=== PATIENT | female | born 1995 | race Caucasian/White ===

== ENCOUNTER 2020-10-26 07:12 | Inpatient (IN) | payer OTHER ==
[2020-10-26] MEDS ORDERED: CITRIC ACID/SODIUM CITRATE 30 ML UNIT-DOSE CUP PO ONE (08:37)
[2020-10-26] MEDS: ELECTROLYTE-148 SOLN 1,000 ML IV SCH (09:00)
[2020-10-26 09:07] LABS: INR 0.95 (0.83-1.09); PROTHROMBIN TIME (PATIENT) 11.5 SEC (9.7-13.0)
[2020-10-26 09:10] LABS: ACTIVATED PTT 24.8 SECONDS (25.2-36.5)
[2020-10-26] MEDS ORDERED: PHENYLEPHRINE HCL 10 MG/1 ML SINGLE DOSE VIAL ONE (09:13)
[2020-10-26] MEDS ORDERED: morphine SULFATE/PF 0.5 MG/ML (2cc Syringe - QUVA) ONE (09:13)
[2020-10-26] MEDS ORDERED: ePHEDrine SULFATE 50 MG/1 ML AMPULE ONE (09:16)
[2020-10-26 09:21] VITALS: BMI 49.6
[2020-10-26 09:21] LABS: BLOOD UREA NITROGEN 11.3 mg/dL (7-18); CALCIUM 9.1 mg/dL (8.5-10.1)
[2020-10-26 09:25] LABS: CREATININE 0.5 mg/dL (0.55-1.3)
[2020-10-26 10:37] LABS: HIV INTERPRETATION NEGATIVE (NEGATIVE)
[2020-10-26] MEDS ORDERED: LIGASURE IMPACT TP ONE (11:46)
[2020-10-26 12:37] LABS: CORD HCO3 22.3 mmHg (20-29); CORD PCO2 51.6 mmHg (30-78); CORD pH 7.254 (7.14-7.44)
[2020-10-26 12:41] LABS: CORD HCO3 24.5 mmHg (20-29); CORD pH 7.325 (7.14-7.44)
[2020-10-26] MEDS ORDERED: KETOROLAC TROMETHAMINE 30 MG/1 ML VIAL ONE (12:57)
[2020-10-26] MEDS ORDERED: DEXAMETHASONE SOD PHOSPHATE 4 MG/1 ML VIAL ONE ×2 (12:57)
[2020-10-26] MEDS ORDERED: OXYTOCIN 10 UNIT/ML 10ML MDV ONE (12:57)
[2020-10-26] MEDS ORDERED: ONDANSETRON 4 MG/2 ML VIAL ONE (12:57)
[2020-10-26] MEDS ORDERED: GLYCOPYRROLATE 0.2 MG/1 ML VIAL ONE (13:11)
[2020-10-26] MEDS ORDERED: ceFAZolin SODIUM 1 GM VIAL ONE (13:12)
[2020-10-26] MEDS ORDERED: ONDANSETRON 4 MG/2 ML VIAL IVPUSH PRN (13:38)
[2020-10-26] MEDS ORDERED: morphine SULFATE/PF 0.5 MG/ML (2cc Syringe - QUVA) EP ONE (13:38)
[2020-10-26] MEDS ORDERED: diphenhydrAMINE HCL 25 MG CAPSULE (FP) PO PRN (14:17)
[2020-10-26] MEDS ORDERED: METHYLERGONOVINE MALEATE 0.2 MG/1 ML AMP IM PRN (14:17)
[2020-10-26] MEDS ORDERED: WITCH HAZEL 50% (TUCKS) 40 PAD/JAR PAD TP PRN (14:17)
[2020-10-26] MEDS ORDERED: BENZOCAINE 28 GM HEMORRHOIDAL OINTMENT RC PRN (14:17)
[2020-10-26] MEDS ORDERED: oxyCODONE HCL 5 MG TABLET PO PRN ×2 (14:17)
[2020-10-26] MEDS ORDERED: BENZOCAINE 20% 57 GM BOTTLE TP PRN (14:17)
[2020-10-26] MEDS ORDERED: IBUPROFEN 800 MG/8 ML IJ IVPB PRN (14:17)
[2020-10-26] MEDS ORDERED: OXYTOCIN 20 UNITS in 0.9% NS 20 UNIT/1,000 ML INFUS.BAG IV SCH (14:30)
[2020-10-26] MEDS: CEFAZOLIN 1 GM/D5W 1 GM/50 ML BAG IVPB SCH (17:35)
[2020-10-27] MEDS: CEFAZOLIN 1 GM/D5W 1 GM/50 ML BAG IVPB SCH (02:48)
[2020-10-27] MEDS: IBUPROFEN 600 MG TABLET (FP) PO PRN ×2 (08:20→18:45)
[2020-10-27] MEDS: SIMETHICONE 80 MG TAB.CHEW (FP) PO PRN (08:21)
[2020-10-27 11:33] LABS: BASO % 0.3 % (0-2.0); HEMATOCRIT 31.7 % (32.4-45.2); HEMOGLOBIN 10.3 GM/dL (10.7-15.3); LYMPH % 18.2 % (8-40); MCHC 32.6 g/dl (32.0-36.0); MEAN CELL VOLUME 73.5 fl (80-96); MEAN PLT VOLUME 7.9 fl (7.5-11.1); MONO % 8.8 % (3.8-10.2); NEUT % 72.7 % (42.8-82.8); PLATELET COUNT 383 10^3/uL (134-434); RBC 4.31 M/mm3 (3.60-5.2); RDW 17.8 % (11.6-15.6); WHITE BLOOD COUNT 16.7 K/mm3 (4.0-10.0)
[2020-10-27] MEDS: ACETAMINOPHEN 325 MG TABLET (FP) PO PRN (13:14)
[2020-10-27] MEDS ORDERED: BISACODYL 10 MG SUPP.RECT PR PRN (14:17)
[2020-10-28] MEDS: IBUPROFEN 600 MG TABLET (FP) PO PRN ×4 (02:16→21:49)
[2020-10-28] MEDS: SIMETHICONE 80 MG TAB.CHEW (FP) PO PRN ×4 (02:19→21:50)
[2020-10-28] MEDS: ELECTROLYTE-148 SOLN 1,000 ML IV SCH ×2 (20:40→20:41)
[2020-10-28] MEDS: DEXTROSE 5%-LACTATED RINGERS 1,000 ML IV SCH ×2 (20:40→20:41)
[2020-10-28] MEDS: ACETAMINOPHEN 325 MG TABLET (FP) PO PRN (21:50)
[2020-10-28] MEDS ORDERED: SENNOSIDES/DOCUSATE COMBO (SENNA PLUS) TABLET (UD) PO PRN (22:00)
[2020-10-29] MEDS: IBUPROFEN 600 MG TABLET (FP) PO PRN (07:48)
[2020-10-29] MEDS: SIMETHICONE 80 MG TAB.CHEW (FP) PO PRN (07:48)
[2020-10-29 08:26] LABS: BASO % 0.2 % (0-2.0); HEMATOCRIT 28.5 % (32.4-45.2); HEMOGLOBIN 9.3 GM/dL (10.7-15.3); LYMPH % 25.7 % (8-40); MCH 24.5 pg (25.7-33.7); MCHC 32.8 g/dl (32.0-36.0); MEAN CELL VOLUME 74.8 fl (80-96); MEAN PLT VOLUME 7.3 fl (7.5-11.1); MONO % 8.6 % (3.8-10.2); NEUT % 64.5 % (42.8-82.8); PLATELET COUNT 335 10^3/uL (134-434); RBC 3.81 M/mm3 (3.60-5.2); RDW 17.5 % (11.6-15.6); WHITE BLOOD COUNT 9.1 K/mm3 (4.0-10.0)
[2020-10-29 11:08] VITALS: BP 120/82; PULSE 94; TEMP 97.8
== END 2020-10-29 12:50 | disposition home or self-care (01) | DRG 784 ==
LOC: JLDR 07:12 → J3W 15:00
PROVIDERS: ADMIT Obstetrics & Gynecology; ATTEND Obstetrics & Gynecology
PROC: 10D00Z1 Extraction of Products of Conception, Low, Open Approach (ICD-10-PCS; principal; 2020-10-26)
PROC: 0UT70ZZ Resection of Bilateral Fallopian Tubes, Open Approach (ICD-10-PCS; 2020-10-26)
PROC: 0DNW0ZZ Release Peritoneum, Open Approach (ICD-10-PCS; 2020-10-26)
DX: O34.219 Maternal care for unspecified type scar from previous cesarean delivery (principal); O98.511 Other viral diseases complicating pregnancy, first trimester; O14.94 Unspecified pre-eclampsia, complicating childbirth; O99.892 Other specified diseases and conditions complicating childbirth; N73.6 Female pelvic peritoneal adhesions (postinfective); O24.420 Gestational diabetes mellitus in childbirth, diet controlled; Z86.16 Personal history of COVID-19; Z3A.37 37 weeks gestation of pregnancy; Z37.0 Single live birth
CPT/HCPCS: 36415; 36600; 80048; 82803; 85025; 85610; 85730; 86850; 86900; 86901; 87389

== ENCOUNTER 2020-12-22 18:44 | Emergency (ER) | payer OTHER ==
[2020-12-22 18:59] VITALS: BP 111/73; PULSE 81; TEMP 97.5; BMI 33.3
[2020-12-22] MEDS ORDERED: KETOROLAC TROMETHAMINE 30 MG/1 ML VIAL IM ONE (19:18)
[2020-12-22] MEDS ORDERED: KETOROLAC TROMETHAMINE 30 MG/1 ML VIAL ONE (19:24)
== END 2020-12-22 20:00 | disposition home or self-care (01) ==
LOC: JERFT 18:44
PROC: 3E0233Z Introduction of Anti-inflammatory into Muscle, Percutaneous Approach (ICD-10-PCS; principal; 2020-12-22)
DX: M65.4 Radial styloid tenosynovitis [de Quervain] (principal)
CPT/HCPCS: 73110-TC-RT-FY; 73130-TC-RT-FY; 99284-25